=== PATIENT | male | born 1935 | race Caucasian/White ===

== ENCOUNTER → 2016-10-27 | Outpatient (CLI) | payer OTHER | END | disposition home or self-care (01) | LOC: PCVCIMAG 13:56 | PROVIDERS: ATTEND Internal Medicine Cardiovascular Disease | DX: Q25.3 Supravalvular aortic stenosis (principal); E78.00 Pure hypercholesterolemia, unspecified | CPT/HCPCS: 93005; 93306; G0463 ==

== ENCOUNTER → 2017-11-01 | Outpatient (CLI) | payer OTHER | END | disposition home or self-care (01) | LOC: PCVCIMAG 08:57 | DX: I08.2 Rheumatic disorders of both aortic and tricuspid valves (principal); E78.00 Pure hypercholesterolemia, unspecified; I73.9 Peripheral vascular disease, unspecified; Z79.82 Long term (current) use of aspirin; Z79.899 Other long term (current) drug therapy | CPT/HCPCS: 93005; 93306; G0463 ==

== ENCOUNTER → 2017-11-02 | Outpatient (CLI) | payer OTHER | END | disposition home or self-care (01) | LOC: PCVCIMAG 11:34 | DX: I73.9 Peripheral vascular disease, unspecified (principal) | CPT/HCPCS: 93925 ==

== ENCOUNTER → 2018-05-16 | Outpatient (CLI) | payer OTHER ==
[~2018-05-16] MED LIST: REGADENOSON 0.4 MG/5 ML DISP.SYRIN. IV ONE
--- NOTE | 2018-05-16 13:11 | PCVCIMAG ---
APPROVED REPORT Imaging Protocol: Rest Tc-99m/Stress Tc-99m 1 day Study performed: 05/16/2018 08:58:08 Indication: Fatigue, Patient Location: Out-Patient Stress Nurse: ELISEO Aguilera Tech:Clay Catherine NMBENIB Ht: 5 ft 6 in Wt: 160 lbs BSA: 1.82 m2 HR: 73 bpm BP: 134/71 mmHg BMI: 25.82 Rhythm: NSR Medical History Medical History: Age, Hyperlipidemia, PVD Medications: ASA, Avodart, Mirapex, Crestor, Trazodone Allergies: No known drug allergies Pretest Chest Pain Characteristics: No chest pain Exercise History: Physically active Resting Data Rest SPECT myocardial perfusion imaging was performed in supine position 45 minutes following the intravenous injection of 12 mCi of Tc-99m Sestamibi. Time of rest injection: 0800 Date: 05/16/2018 Administration Route: IV Administration Site: Right Hand Exercise Stress At peak stress, the patient was injected intravenously with 33.9mCi of Tc-99m Sestamibi. Time of stress injection: 0930 Date: 05/16/2018 Administration Route: IV Administration Site: Right Hand Heart Rate at time of stress injection: 131 bpm. Patient continued to exercise for 7.5 minute(s). Gated Stress SPECT was performed 45 minutes after stress injection. The images were gated to evaluate regional wall motion and calculate left ventricular ejection fraction. Stress Test Details Stress Test: Exercise stress testing was performed using a Hunter protocol. HRMax Heart Rate (APMHR): 139 bpm Resting HR: 73 bpmTarget HR (85% APMHR): 118 bpm Max HR Achieved: 131 bpm % of APMHR: 94 Recovery HR: 90 bpm HR response to stress: Normal HR response to stress BP Resting BP: 134/71 mmHg Recovery BP: 146/73 mmHg BP response to stress: Normal blood pressure response to stress. ECG Resting ECG: Sinus Rhythm Stress ECG: Sinus Tachycardia ST Change: Non-ischemic Maximum ST Deviation: 0.5 mm Arrhythmia: PVC's Rare Recovery ECG: Sinus Rhythm Recovery ST Change: None Recovery ST Deviation: 0 mm Clinical Reason for Termination: Dyspnea, Fatigue Stress Symptoms: Dyspnea, Fatigue, HR obtained Exercise duration: 7 min 20 sec Exercise capacity: 10.10 METs Overall Exercise Capacity for Age: Good Scale: Active Angina Score: None Symptoms resolved during recovery. Stress ECG Conclusion Mckee Treadmill Score is 4.5 which is Moderate risk. Study Quality Study: Good Artifact: Moderate Soft tissue attenuation artifact Study Data Post stress, the left ventricular ejection was 69%.. SSS: 0 SRS: 0 SDS: 0 TID = 1.12. Perfusion There is a medium area of moderately reduced uptake in the basal and apical segment of the inferior wall which is seen on the stress images as well as the resting images. This area thickens and moves normally and is most consistent with attenuation artifact. Wall Motion Normal left ventricular wall motion. Nuclear Conclusion ECG Findings: negative for ischemia Clinical Findings: negative for ischemia Nuclear Findings: negative for ischemia Exercise Capacity: above average Left Ventricular Function: normal Risk Study: low This study is of low probability for inducible ischemia. Normal global and segmental LV systolic function. Artifact: Moderate Soft tissue attenuation artifact
== END | disposition home or self-care (01) ==
LOC: PCVCIMAG 08:46
PROVIDERS: ATTEND Internal Medicine Cardiovascular Disease
DX: E78.5 Hyperlipidemia, unspecified (principal); R53.83 Other fatigue; I73.9 Peripheral vascular disease, unspecified
CPT/HCPCS: 78452; 93017; A9500; J2785

== ENCOUNTER → 2018-11-21 | Outpatient (CLI) | payer OTHER ==
--- NOTE | 2018-11-21 10:43 | PCVCIMAG ---
APPROVED REPORT Study performed: 11/21/2018 09:29:08 EXAM: Comprehensive 2D, Doppler, and color-flow Echocardiogram Patient Location: Echo lab Status: routine BSA: 1.78 HR: 70 bpmBP: 116/52 mmHg Rhythm: NSR Other Information Study Quality: Adequate Risk Factors: Cardiac Risk Factors: Hyperlipidemia Indications aortic stenosis 2D Dimensions IVSd: 10.54 (7-11mm)LVOT Diam: 20.46 (18-24mm) LVDd: 40.72 mm PWd: 10.78 (7-11mm) LVDs: 26.55 (25-40mm) Left Atrium: 41.44 (27-40mm) Aortic Root: 24.84 mm LV Single Plane 4CH: 60.63 % LV Single Plane 2CH: 69.23 % Biplane EF: 65.1 % Volumes Left Atrial Volume (Systole) Single Plane 4CH: 64.85 mLSingle Plane 2CH: 51.47 mL LA ESV Index: 33.00 mL/m2 Aortic Valve AoV Peak Shoaib.: 4.15 m/s AO Peak Gr.: 69.05 mmHgLVOT Max P.54 mmHg AO Mean Gr.: 33.41 mmHgLVOT Mean P.67 mmHg AO V2 Mean: 2.66 m/sLVOT Max V: 1.18 m/s AO V2 VTI: 92.73 cmLVOT Mean V: 0.76 m/s NOVA (VTI): 0.89 [id number] V1 VTI: 25.06 cm NOVA Vmax: 0.93 cm2 AI Vmax: 3.87 m/sSV (LVOT): 82.39 mL AI Amador: 2.86 m/s2 AI PHT: 392.09 ms Mitral Valve E/A Ratio: 1.0 MV Decel. Time: 270.23 ms MV E Max Shoaib.: 0.58 m/s MV A Shoabi.: 0.56 m/s IVRT: 100.35 ms Pulmonary Valve PV Peak Shoaib.: 1.31 m/sPV Peak Gr.: 6.91 mmHg Pulmonary Vein P Vein S: 0.35 m/sP Vein A: 0.38 m/s P Vein D: 0.51 m/sP Vein A Dur.: 134.9 msec P Vein S/D Ratio: 0.69 Tricuspid Valve TR Peak Shoaib.: 2.39 m/s TR Peak Gr.: 22.77 mmHg TV Vmax: 0.53 m/s Left Ventricle The left ventricle is normal size. There is normal LV segmental wall motion. There is normal left ventricular wall thickness. Left ventricular systolic function is normal. The left ventricular ejection fraction is within the normal range. LVEF is 65%. Grade I - abnormal relaxation pattern. Right Ventricle The right ventricle is normal size. The right ventricular systolic function is normal. Atria Left atrium is at the upper limits of normal. The right atrium size is normal. Aortic Valve The aortic valve is severely calcified. Mild aortic regurgitation. There is moderately severe aortic stenosis. Calculated aortic valve area is .9 cm2 with maximum pressure gradient of 69 mmHg and mean pressure gradient of 33 mmHg. Mitral Valve The mitral valve is normal in structure. Mild to moderate mitral regurgitation. No evidence of mitral valve stenosis. Tricuspid Valve The tricuspid valve is normal in structure. Mild tricuspid regurgitation with PAP of 30 mmHg. Pulmonic Valve The pulmonary valve is normal in structure. Trace pulmonic regurgitation. Great Vessels The aortic root is normal in size. IVC is normal in size and collapses >50% with inspiration. Pericardium There is no pericardial effusion. There is no pleural effusion. <Conclusion> The left ventricle is normal size. There is normal left ventricular wall thickness. Left ventricular systolic function is normal. Grade I - abnormal relaxation pattern. The right ventricle is normal size. Left atrium is at the upper limits of normal. There is moderately severe aortic stenosis. Mild aortic regurgitation. Mild to moderate mitral regurgitation. Mild tricuspid regurgitation with PAP of 30 mmHg.
== END | disposition home or self-care (01) ==
LOC: PCVCIMAG 09:20
PROVIDERS: ATTEND Internal Medicine Cardiovascular Disease
DX: I08.3 Combined rheumatic disorders of mitral, aortic and tricuspid valves (principal); E78.00 Pure hypercholesterolemia, unspecified
CPT/HCPCS: 93306

== ENCOUNTER → 2019-06-05 | Outpatient (CLI) | payer OTHER | END | disposition home or self-care (01) | LOC: PCVCCLINIC 10:30 | PROVIDERS: ATTEND Internal Medicine Cardiovascular Disease | DX: I35.0 Nonrheumatic aortic (valve) stenosis (principal); E78.00 Pure hypercholesterolemia, unspecified; R00.1 Bradycardia, unspecified; Z79.82 Long term (current) use of aspirin | CPT/HCPCS: 93005; G0463 ==